=== PATIENT | male | born 1990 | race African-American/Black ===

== ENCOUNTER 2023-01-12 21:22 | Emergency (ER) | payer MEDICARE, SELFPAY ==
[2023-01-12 21:24] VITALS: BP 132/78; PULSE 78; RESP 16; TEMP 36.8; O2SAT 99; BMI 40.1
--- NOTE | 2023-01-13 00:05 | ED.VIS.LOWEX ---
HPI History of Present Illness Chief Complaint: Lower Extremity Injury Informant: patient Narrative Narrative: Patient presents with right calf pain. Patient states he was running after his daughter who was on a bicycle yesterday. He was just moving around. He states when his leg went out it hit the ground and he got sudden pain in his right calf. Prior to that he felt fine. It hurts if he presses his foot straight in equinus. All the pain is in the posterior proximal third of the calf. No chest pain or trouble breathing. No current medications. No history of DVT or PE. No other injury. He never fell to the ground. He is able to bear weight. No loss of sensation. PFSH PFSH Home Medications naproxen 500 mg tablet 500 mg PO BID #14 tabs 01/13/23 [Rx Last Taken Unknown] Allergy/AdvReac Type Severity Reaction Status Date / Time No Known Allergies Allergy Verified 01/12/23 21:25 ROS ROS ED Constitutional Constitutional ED: Denies fever(s) Cardiovascular Cardiovascular: Denies chest pain, palpitations or racing heartbeat Respiratory/Chest Respiratory/Chest: Denies cough or dyspnea Gastrointestinal Gastrointestinal: Denies nausea or vomiting Musculoskeletal Musculoskeletal: Reports other Details: See history of present illness. Patient has a history of back pain but is not having it now. ; Denies back pain or neck pain Integumentary Denies Abrasions or rash Neurologic Neurologic: Denies paresthesias or weakness Endocrine Endocrinology: Denies polydipsia or polyuria Hematologic/Lymphatic Hematologic/Lymphatic: Denies lymphadenopathy EXAM Physical Exam Narrative Exam Narrative: Patient is awake alert sitting comfortably on bed no acute distress carries on normal conversation. HEENT shows no sign of trauma or injury Lungs are clear bilaterally no pain with a deep breath saturations are normal 99% on room air. Heart is regular. No murmur gallop or rub. Peripheral pulses are normal. Abdomen is mildly large but nontender. Back shows no tenderness. Extremities: Patient has some tenderness to the proximal calf on the right. It is more on the medial and center area and less laterally. But the calf is not enlarged when compared to the left. His Achilles is intact by both palpation and Richardson test. When I have him press down firmly on his foot he does have pain in the calf. It is a little hard to tell if he has a solid well-formed medial gastrocnemius head or not. But he certainly does not have an Achilles tendon rupture. Distal pulses sensation are intact. There is no bony tenderness or deformities anywhere. Const Vital Signs: 01/12/23 21:24 Temperature 98.2 F Temperature Source Temporal Pulse Rate 78 Respiratory Rate 16 Blood Pressure 132/78 H Blood Pressure Mean 96 Pulse Ox 99 Oxygen Delivery Method Room Air MDM MDM MDM Narrative Medical decision making narrative: PERCThis patient either had a plantaris tendon rupture or may have torn medial head of his gastrocnemius. X-ray nor ultrasound will really give appropriate answers to this. I do not think he needs those images. There is no indication of DVT. Negative x-ray and negative score on Wells criteria for DVT. Both plantaris rupture and most medial head of the gastrocnemius ruptures will be treated conservatively. I think it is okay if he follows up with orthopedics. He was use ice rest and elevation to treat this. I will give him some nonsteroidals. He will follow-up with Ortho. I explained that even if he is feeling better he should follow-up with orthopedics to have a repeat exam. They may end up doing further imaging if necessary. Depending on overall age and health and activity it is possible they may consider surgery but I do not think that needs to be done acutely tonight. I will write him his light duty because he does do a lot of work on ladders. Discharge Plan Triage Chief Complaint: Lower Extremity Injury ED Provider: Arie Anna Dx/Rx/DC Orders Clinical Impression: Rupture of right gastrocnemius muscle, Pain of right calf Instructions: Gastrocnemius Muscle Tear, ED Muscle Strain, Extremity Prescriptions: New naproxen 500 mg tablet 500 mg PO BID Qty: 14 0RF Referrals: Celestine Silva DO [Med Staff - Active Staff] - As soon as possible Disposition Disposition: Home, Self Care
[2023-01-13] MEDS: Naproxen 500 MG Tablet PO (00:26)
== END 2023-01-13 00:48 | disposition home or self-care (01) ==
LOC: ED 01-13 00:39
PROVIDERS: Emergency Provider Emergency Medicine; Visit Provider Emergency Medicine
DX: S86.111A Strain of other muscle(s) and tendon(s) of posterior muscle group at lower leg level, right leg, initial encounter (principal); M79.661 Pain in right lower leg; X58.XXXA Exposure to other specified factors, initial encounter
CPT/HCPCS: 99282